=== PATIENT | male | born 1970 | race Caucasian/White ===

== ENCOUNTER 2020-01-14 11:37 | Day surgery (SDC) | payer OTHER ==
[2020-01-07 12:13] VITALS: BMI 19.3
[2020-01-14 12:12] VITALS: TEMP 97.7
[2020-01-14 15:31] VITALS: BP 123/63; PULSE 40
== END 2020-01-14 15:20 | disposition home or self-care (01) ==
LOC: FASU-ENDO 11:37
PROVIDERS: ATTEND Internal Medicine Gastroenterology
PROC: 0DJD8ZZ Inspection of Lower Intestinal Tract, Via Natural or Artificial Opening Endoscopic (ICD-10-PCS; principal; 2020-01-14 14:05)
DX: Z12.11 Encounter for screening for malignant neoplasm of colon (principal); K64.1 Second degree hemorrhoids; K57.30 Diverticulosis of large intestine without perforation or abscess without bleeding